=== PATIENT | male | born 2000 | race Caucasian/White ===

== ENCOUNTER 2023-12-07 12:37 | Emergency (ER) | payer SELFPAY ==
[2023-12-07 12:41] VITALS: BP 132/88
[2023-12-07 13:18] VITALS: BMI 37.0
[2023-12-07 13:42] LABS: % Basophils 0.3 % (0-2); % Eosinophils 1.5 % (0-6); % Immature Granulocytes 0.4 % (0-0.5); % Lymphocytes 33.4 % (20.5-51.1); % Monocytes 11.6 % (1.7-9.3); % Neutrophils 52.8 % (42.2-75.2); Absolute Eosinophils 0.1 10^3/uL (0-0.7); Absolute Lymphocytes 2.7 10^3/uL (1.2-3.4); Absolute Monocytes 0.9 10^3/uL (0.1-0.6); Absolute Neutrophils 4.2 10^3/uL (1.4-6.5); Hemoglobin 13.6 g/dL (13.0-18.0); Mean Corp Hgb Conc. 32.4 g/dL (33.0-37.0); Mean Corpuscular Hgb 29.1 pg (27.0-31.0); Mean Corpuscular Volume 89.9 fL (80.0-94.0); Nucleated Red Blood Cells % 0 % (-); Platelet Count 238 10^3/uL (130-400); Red Blood Cell Count 4.67 10^6/uL (4.70-6.10); Red Cell Dist. Width 13.5 % (11.5-14.5); White Blood Cell Count 7.9 10^3/uL (4.8-10.8)
[2023-12-07 14:01] LABS: ALT (SGPT) 20 U/L (0-50); AST (SGOT) 31 U/L (17-59); Albumin 4.5 g/dl (3.5-5.0); Alkaline Phosphatase 51 U/L (38-126); Blood Urea Nitrogen 22 mg/dl (9-20); Calcium 9.6 mg/dl (8.4-10.2); Carbon Dioxide 27 mmol/L (22-30); Chloride 100 mmol/L (98-107); Estimated Creatinine Clearance > 125 ml/min; Glucose 101 mg/dl (70-99); Potassium 4.4 mmol/L (3.5-5.1); Sodium 138 mmol/L (135-145); Total Bilirubin 0.7 mg/dl (0.2-1.3); eGFR > 60.00
[2023-12-07 14:11] LABS: Urine Albumin Trace (Neg - Trace); Urine Bilirubin 1+ (Negative); Urine Character Clear (Clear); Urine Color Yellow; Urine Glucose Negative (Negative); Urine Ketone Trace (Negative); Urine Leukocyte Negative (Negative); Urine Nitrite Negative (Negative); Urine Occult Blood Negative (Negative); Urine Urobilinogen 2+ (Neg - 1+)
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
[2023-12-07 17:34] VITALS: BP 140/60
== END 2023-12-07 17:47 | disposition home or self-care (01) ==
LOC: EMR 12:37
PROVIDERS: Physician Assistant; EMERGENCY PHYSICIAN Emergency Medicine
DX: R10.30 Lower abdominal pain, unspecified (principal); M25.512 Pain in left shoulder; S00.12XA Contusion of left eyelid and periocular area, initial encounter; S30.1XXA Contusion of abdominal wall, initial encounter; M43.6 Torticollis; S30.811A Abrasion of abdominal wall, initial encounter; V47.0XXA Car driver injured in collision with fixed or stationary object in nontraffic accident, initial encounter; Y92.410 Unspecified street and highway as the place of occurrence of the external cause
CPT/HCPCS: 99285; 71046; 74177; 80053; 81003; 85025; Q9967

== ENCOUNTER 2025-04-03 14:21 | Emergency (ER) | payer BC, SELFPAY ==
[2025-04-03 14:26] VITALS: BMI 29.4
[2025-04-03 14:34] VITALS: BP 148/83
[2025-04-03 14:36] VITALS: BP 148/83
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
--- NOTE | 2025-04-03 16:52 | EDRN ---
Assumed care of pt at this time.
--- NOTE | 2025-04-03 16:55 | EDRN ---
Pt changing into paper scrubs at this time.
[2025-04-03 22:55] VITALS: BP 118/72
[2025-04-03 23:33] LABS: Hematocrit 42.6 % (39.0-52.0); Hemoglobin 14.6 g/dL (13.0-18.0); Mean Corp Hgb Conc. 34.3 g/dL (33.0-37.0); Mean Corpuscular Volume 85.5 fL (80.0-94.0); Nucleated Red Blood Cells % 0 % (-); Platelet Count 273 10^3/uL (130-400); Red Cell Dist. Width 12.8 % (11.5-14.5)
[2025-04-03 23:36] LABS: Urine Character Clear (Clear)
[2025-04-03 23:43] LABS: Urine Squamous Cell None seen /LPF (Few)
[2025-04-03 23:44] LABS: Urine Red Blood Cell None Seen /HPF (0-2); Urine White Cell 0-2 /HPF (0-5)
[2025-04-04 00:04] LABS: ALT (SGPT) 15 U/L (0-50); AST (SGOT) 15 U/L (17-59); Albumin 5.2 g/dl (3.5-5.0); Alkaline Phosphatase 45 U/L (38-126); Blood Urea Nitrogen 11 mg/dl (9-20); Calcium 10.2 mg/dl (8.4-10.2); Carbon Dioxide 29 mmol/L (22-30); Chloride 100 mmol/L (98-107); Estimated Creatinine Clearance > 125 ml/min; Glucose 98 mg/dl (70-99); Potassium 4.0 mmol/L (3.5-5.1); Sodium 138 mmol/L (135-145); Total Protein 8.0 g/dl (6.3-8.2); eGFR > 60.00
== END 2025-04-04 12:17 ==
LOC: EMR 14:21
PROVIDERS: Physician Assistant; EMERGENCY PHYSICIAN Emergency Medicine
DX: F29 Unspecified psychosis not due to a substance or known physiological condition (principal); R45.851 Suicidal ideations; F19.10 Other psychoactive substance abuse, uncomplicated; F32.A Depression, unspecified; Z56.0 Unemployment, unspecified
CPT/HCPCS: 99285; 80053; 80306; 81003; 81015; 85025